=== PATIENT | male | born 1995 | race Caucasian/White ===

== ENCOUNTER 2022-01-29 11:08 | Outpatient (CLI) | payer OTHER | END 2022-01-29 11:09 | disposition home or self-care (01) | LOC: CSHLAB 11:08 | PROVIDERS: ATTEND Surgery | DX: Z20.822 Contact with and (suspected) exposure to COVID-19 (principal); K60.3 Anal fistula | CPT/HCPCS: U0003; U0005 ==

== ENCOUNTER 2022-02-01 06:25 | Day surgery (SDC) | payer OTHER ==
[2022-01-30 14:15] VITALS: BMI 25.3
[2022-02-01] MEDS ORDERED: Lidocaine 1% MPF 2 ML VIAL ONE (07:41)
[2022-02-01] MEDS ORDERED: EPINEPHrine 1 MG/ML AMP ONE (08:18)
[2022-02-01] MEDS ORDERED: Bupivacaine PF 0.5% 30 ML VIAL ONE (08:18)
[2022-02-01] MEDS ORDERED: Acetaminophen 325 MG TAB PO PRN (08:55)
[2022-02-01] MEDS ORDERED: HYDROcodone/Acetaminophen 5/325 mg Tablet PO PRN (08:55)
[2022-02-01] MEDS ORDERED: Fentanyl 100 MCG/2 ML VIAL ONE (08:56)
[2022-02-01] MEDS ORDERED: PROPOFOL 40 ML ONE (08:56)
[2022-02-01] MEDS ORDERED: Lidocaine 1% PF 5 ML VIAL ONE (08:57)
[2022-02-01] MEDS ORDERED: CEFAZOLIN 2 GM VIAL ONE (08:57)
[2022-02-01] MEDS ORDERED: Dexamethasone 4 mg/ml Vial ONE (08:57)
[2022-02-01] MEDS ORDERED: Ondansetron PF 4 MG/2 ML Vial ONE (08:57)
[2022-02-01] MEDS ORDERED: Midazolam HCl 2 mg/2 ml Vial ONE (09:04)
== END 2022-02-01 11:15 | disposition home or self-care (01) ==
LOC: CSHSDC 06:25
PROVIDERS: ATTEND Surgery
PROC: 0DBQ7ZZ Excision of Anus, Via Natural or Artificial Opening (ICD-10-PCS; principal; 2022-02-01)
DX: K60.3 Anal fistula (principal); I10 Essential (primary) hypertension
CPT/HCPCS: J0171; J0690; J1100; J2250; J2405; J2704; J3010; S0020

== ENCOUNTER 2022-07-13 05:48 | Day surgery (SDC) | payer OTHER ==
[2022-07-11 14:52] VITALS: BMI 25.7
[2022-07-13] MEDS ORDERED: EPINEPHrine 1 MG/ML AMP ONE (06:45)
[2022-07-13] MEDS ORDERED: Bupivacaine PF 0.5% 30 ML VIAL ONE (06:46)
[2022-07-13] MEDS ORDERED: Lidocaine 2% 6 ML SYR ONE (06:47)
[2022-07-13] MEDS ORDERED: Midazolam HCl 2 mg/2 ml Vial ONE (06:57)
[2022-07-13] MEDS ORDERED: PROPOFOL 20 ML ONE (06:57)
[2022-07-13] MEDS ORDERED: Ondansetron PF 4 MG/2 ML Vial ONE (06:57)
[2022-07-13] MEDS ORDERED: Fentanyl 100 MCG/2 ML VIAL ONE ×2 (06:57→07:45)
[2022-07-13] MEDS ORDERED: Ketorolac Tromethamine 30 MG/ML VIAL ONE (06:58)
[2022-07-13] MEDS ORDERED: Lidocaine 1% PF 5 ML VIAL ONE (06:58)
[2022-07-13] MEDS ORDERED: Dexamethasone 4 mg/ml Vial ONE (06:58)
[2022-07-13] MEDS ORDERED: CEFAZOLIN 2 GM VIAL ONE (07:11)
[2022-07-13] MEDS ORDERED: HYDROcodone/Acetaminophen 5/325 mg Tablet PO PRN (08:06)
[2022-07-13] MEDS ORDERED: Meperidine HCl/PF 25 MG/ML VIAL ONE (08:07)
== END 2022-07-13 09:40 | disposition home or self-care (01) ==
LOC: CSHSDC 05:48
PROVIDERS: ATTEND Surgery
PROC: 0D8R0ZZ Division of Anal Sphincter, Open Approach (ICD-10-PCS; principal; 2022-07-13)
DX: K60.3 Anal fistula (principal); I10 Essential (primary) hypertension
CPT/HCPCS: J0171; J1100; J1885; J2175; J2250; J2405; J2704; J3010; S0020